=== PATIENT | female | born 1945 | race Caucasian/White ===

== ENCOUNTER 2020-09-25 13:59 | Emergency (ER) | payer MEDICARE, OTHER ==
[~2020-09-25] VITALS: Ht 160 cm; Wt 68.0 kg
[2020-09-25 14:33] LABS: URINE BILIRUBIN NEGATIVE (Negative); URINE BLOOD NEGATIVE (Negative); URINE CLARITY CLEAR; URINE COLOR YELLOW; URINE GLUCOSE-RANDOM NEGATIVE (Negative); URINE KETONES NEGATIVE (Negative); URINE LEUKOCYTES-REFLEX 1+ (Negative); URINE NITRITE-REFLEX NEGATIVE (Negative); URINE PROTEIN NEGATIVE (Negative); URINE UROBILINOGEN 0.2 E.U./dl (0.2-1.0)
[2020-09-25] MEDS ORDERED: TOPROL XL50 MG PO (14:34)
[2020-09-25] MEDS ORDERED: LASIX 40 MG TAB40 MG PO (14:34)
[2020-09-25] MEDS ORDERED: LISINOPRIL10 MG PO (14:34)
[2020-09-25] MEDS ORDERED: LOVASTATIN 20 M20 MG PO (14:35)
[2020-09-25] MEDS ORDERED: NORVASC10 MG PO (14:35)
[2020-09-25 14:39] LABS: BACTERIA-REFLEX 1-9 Few /HPF (None Seen); CASTS None Seen /LPF (None Seen); CRYSTALS None Seen /LPF (None Seen); MUCUS None Seen strn/LPF (None Seen); SQUAMOUS NONE SEEN /LPF (0-3); URINE RBC 0-2 Rare /HPF (0-2); URINE WBC-REFLEX 0-5 Rare /HPF (0-5)
[2020-09-25 14:48] LABS: ABSOLUTE BASOPHILS 0.1 thou/uL (0.0-0.2); ABSOLUTE EOSINOPHILS 0.3 thou/uL (0.0-0.7); ABSOLUTE LYMPHOCYTES 1.7 thou/uL (0.8-5.3); ABSOLUTE MONOCYTES 0.7 thou/uL (0.0-1.2); BASOPHILS 1.2 %; EOSINOPHILS 3.4 %; HEMOGLOBIN 12.6 gm/dL (12.0-15.0); LYMPHOCYTES 19.1 %; MCH 33.2 pg (26.0-34.0); MCHC 34.9 g/dL (28.0-37.0); MONOCYTES 7.6 %; MPV 7.3 fl. (7.2-11.1); NUCLEATED RBCS 0 /100WBC; PLATELET COUNT* 319 thou/uL (150-400); POLYS 68.7 %; RBC 3.79 mil/uL (4.20-5.00); RDW-CV 12.7 % (10.5-14.5); WBC 8.7 thou/uL (4.0-11.0)
[2020-09-25 14:59] LABS: CALCIUM 9.3 mg/dL (8.5-10.1); CREATININE 1.3 mg/dL (0.6-1.3); POTASSIUM 4.6 mmol/L (3.5-5.1)
[2020-09-25 15:09] LABS: ALBUMIN 3.5 g/dL (3.4-5.0); TOTAL BILIRUBIN 0.2 mg/dL (<0.1-1.0); TOTAL PROTEIN 7.4 g/dL (6.4-8.2)
[2020-09-25] MEDS ORDERED: CEPHALEXIN500 MG PO (17:04)
[2020-09-25] MEDS ORDERED: HYDROCODON-ACE1 EAC7 PO (17:04)
[2020-09-25 17:23] VITALS: BP 159/56
--- NOTE | 2020-09-26 09:00 | EKG ---
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 : 1945 Requested By: Jose Juan Hidalgo Order Number: [id number] MD: Mac Carranza Measurements Intervals [place] Rate: 52 P: 79 MD: 148 QRS: -33 QRSD: 139 T: 103 QT: 464 QTc: 432 Interpretive Statements Sinus rhythm Consider left atrial enlargement Left bundle branch block No previous ECG available for comparison Electronically Signed On 09-26-2020 9:00:15 CDT by Mac Carranza [email or web address] <ELECTRONICALLY SIGNED> By: Mac Carranza MD, [facility] 09/26/20 0900 1435 1435 Mac Carranza MD, [facility] /EPI
== END 2020-09-25 17:24 | disposition home or self-care (01) ==
LOC: EDSEX 13:59 → M.ERS 13:59
PROVIDERS: Emergency Medicine Emergency Medical Services
DX: S32.010A Wedge compression fracture of first lumbar vertebra, initial encounter for closed fracture (principal); S32.020A Wedge compression fracture of second lumbar vertebra, initial encounter for closed fracture; N39.0 Urinary tract infection, site not specified; M25.552 Pain in left hip; W18.39XA Other fall on same level, initial encounter; Y93.89 Activity, other specified; Y92.89 Other specified places as the place of occurrence of the external cause; Y99.8 Other external cause status

== ENCOUNTER 2020-10-09 12:46 | Inpatient (IN) | payer MEDICARE ==
[~2020-10-09] VITALS: Ht 165.1 cm; Wt 53.1 kg
[~2020-10-09 12:46] MED LIST: CEPHALEXIN500 MG PO; HYDROCODON-ACE1 EAC7 PO; LASIX 40 MG TAB40 MG PO; LISINOPRIL10 MG PO; LOVASTATIN 20 M20 MG PO; NORVASC10 MG PO; TOPROL XL50 MG PO
[2020-10-09 13:04] VITALS: BP 152/47
[2020-10-09 13:22] LABS: ABSOLUTE BASOPHILS 0.1 thou/uL (0.0-0.2); ABSOLUTE EOSINOPHILS 0.1 thou/uL (0.0-0.7); ABSOLUTE LYMPHOCYTES 1.5 thou/uL (0.8-5.3); ABSOLUTE MONOCYTES 0.4 thou/uL (0.0-1.2); ABSOLUTE NEUTROPHILS 8.3 thou/uL (1.6-8.1); BASOPHILS 0.9 %; EOSINOPHILS 0.9 %; HEMATOCRIT 37.6 % (37.0-47.0); HEMOGLOBIN 13.4 gm/dL (12.0-15.0); LYMPHOCYTES 14.3 %; MCH 33.2 pg (26.0-34.0); MCHC 35.7 g/dL (28.0-37.0); MONOCYTES 4.2 %; MPV 7.2 fl. (7.2-11.1); NUCLEATED RBCS 0 /100WBC; PLATELET COUNT* 372 thou/uL (150-400); POLYS 79.7 %; RBC 4.05 mil/uL (4.20-5.00); RDW-CV 12.4 % (10.5-14.5); WBC 10.4 thou/uL (4.0-11.0)
[2020-10-09 13:28] LABS: CALCIUM 9.7 mg/dL (8.5-10.1); CREATININE 1.1 mg/dL (0.6-1.3); POTASSIUM 4.1 mmol/L (3.5-5.1)
[2020-10-09 13:39] LABS: ALBUMIN 3.8 g/dL (3.4-5.0); TOTAL BILIRUBIN 0.4 mg/dL (<0.1-1.0)
[2020-10-09 14:47] LABS: URINE BILIRUBIN NEGATIVE (Negative); URINE BLOOD NEGATIVE (Negative); URINE CLARITY CLEAR; URINE COLOR YELLOW; URINE GLUCOSE-RANDOM NEGATIVE (Negative); URINE KETONES NEGATIVE (Negative); URINE LEUKOCYTES-REFLEX 1+ (Negative); URINE NITRITE-REFLEX NEGATIVE (Negative); URINE PROTEIN NEGATIVE (Negative); URINE UROBILINOGEN 0.2 E.U./dl (0.2-1.0)
[2020-10-09 15:04] LABS: SQUAMOUS 0-3 Few /LPF (0-3)
[2020-10-09 15:05] LABS: URINE RBC None Seen /HPF (0-2); URINE WBC-REFLEX 0-5 Rare /HPF (0-5)
[2020-10-09 15:06] LABS: BACTERIA-REFLEX 1-9 Few /HPF (None Seen); CASTS None Seen /LPF (None Seen); CRYSTALS None Seen /LPF (None Seen); MUCUS None Seen strn/LPF (None Seen)
--- NOTE | 2020-10-09 15:37 | EKG ---
[place] [address] ELECTROCARDIOGRAM REPORT Name: CRIS HARP Olinda Room: [facility]#: [id number] Admission: 10/09/20 Attend Phys: Discharge: Date of : 45 Date of Service: 10/09/20 1257 Report #: [id number] THIS REPORT FOR: //name// [facility] ED Test Date: 2020-10-09 Test Time: 12:57:36 Pat Name: CRIS HARP Department: Room: Gender: F Media Specialist: : 1945 Requested By: Jose Juan Hidalgo Order Number: [id number] MD: Xu Mcfarlane Measurements Intervals [place] Rate: 61 P: 81 NE: 144 QRS: -33 QRSD: 138 T: 102 QT: 460 QTc: 464 Interpretive Statements Sinus rhythm Left bundle branch block Compared to ECG 09/25/2020 14:35:51 No significant changes Electronically Signed On 10-09-2020 15:36:48 CDT by Xu Mcfarlane [email or web address] <ELECTRONICALLY SIGNED> By: Xu Mcfarlane MD, [facility] 10/09/20 1536 1257 1257 Xu Mcfarlane MD, [facility] /EPI
--- NOTE | 2020-10-09 16:48 | NUR ---
spoke with Dr. García regarding consult for IR for kyphoplasty on vertebrae. Dr. García will ask Dr. Mohamud to evaluate in AM for procedure and date of procedure. If necessary to do sooner than later, one of the physicians will come out here to do hopefully Weds. Will follow up with Dr. Mohamud in AM. Called RN in ER to advise of Plan.
[2020-10-09 17:35] VITALS: BP 143/38
[2020-10-10 03:49] LABS: HEMATOCRIT 32.7 % (37.0-47.0); HEMOGLOBIN 11.5 gm/dL (12.0-15.0); MCH 32.9 pg (26.0-34.0); MCHC 35.2 g/dL (28.0-37.0); MCV 93.2 fL (80.0-100.0); MPV 7.2 fl. (7.2-11.1); RBC 3.5 mil/uL (4.20-5.00); RDW-CV 12.5 % (10.5-14.5); WBC 7.2 thou/uL (4.0-11.0)
[2020-10-10 03:56] LABS: CALCIUM 9.1 mg/dL (8.5-10.1); CREATININE 0.9 mg/dL (0.6-1.3); POTASSIUM 4.1 mmol/L (3.5-5.1)
[2020-10-10 04:00] LABS: MAGNESIUM 1.8 mg/dL (1.8-2.4); TOTAL BILIRUBIN 0.4 mg/dL (<0.1-1.0); TOTAL PROTEIN 6.6 g/dL (6.4-8.2)
--- NOTE | 2020-10-10 05:44 | NUR ---
RECIEVED PT VIA GURDERREK WITH C/O LOWER BACK PAIN SINCE ONE AGO WHEN PT FELL. TODAY PAIN " UNBEARABLE" AND CAME IN D TO BE SEEN. DATA BASE AND ASSESSMENT COMPLETED, DISCUSSED PLAN OF CARE , PT AGREEABLE. BSC AT BESIDE BED ALARM ON FOR SAFETY.
[2020-10-10 08:00] VITALS: BP 143/51
--- NOTE | 2020-10-10 11:47 | NUR ---
IR consulted for possible kyphoplasty of L1. after discussing with Dr. Kalen Bruner, the procedure can be accomplished but only after patient is free from UTI. Dr. Bruner stated that there is the possibility of osteomyelitis with the other process going on. Dr. Dang informed of this and will wait for future orders as how to proceed.
--- NOTE | 2020-10-10 14:24 | NUR ---
Pt is A&O. Resides at home with her and 2 sons. Independent, has to assist sometimes with mobility. Pt has a walker, cane and wc that she can use, primarily uses walker. No hx of HH or SNF. Pt open to HH at ma, if needed. ARU consult placed. Therapies to see. GI following. Plan MRI spine today. Following
--- NOTE | 2020-10-10 15:31 | CON ---
[address] [address] CONSULTATION Name: CRIS HARP Room: [address] IN ..#: [id number] Admission: 10/09/20 Attend Phys: Sue Dang MD Discharge: Date of : 45 Report #: [id number] THIS REPORT FOR: cc: [facility] - Clinic physician unknown [facility] - Clinic physician unknown Mariely Veliz MD ~ DOC #: [id number] ALCON Hernandez DATE OF CONSULTATION: 10/10/2020 No PCP is noted at this time. Please note at the time of this dictation, the patient was seen and physically examined by myself. REASON FOR CONSULTATION: Nausea, vomiting and dysphagia. HISTORY OF PRESENT ILLNESS: This is a 75-year-old female who presented to the Emergency Room with intractable back pain, nausea and vomiting. The patient states that she fell about 3 weeks ago and has had worsening of her pain. About 2 weeks ago, she was in the ER and then discharged home. It was noted that she had a lumbar compression fracture at L1 and L2. She states she has had progressive nausea and vomiting as well as she is having some difficulty with swallowing and she has noticed about a 20-pound weight loss over the last several months. The patient states that with her vomitus, she denies any bright red blood or any coffee-ground emesis. She does take some NSAIDs once or twice a week, depending on her generalized aches and pains. She states she does not have any abdominal pain. Her bowels normally move once a day to every other day. They are soft and formed with no evidence of any bright red blood or any melanotic stool. The patient states she has never been evaluated by a maintenance and engineering manager or ever had an EGD or a colonoscopy. The patient does mention that she will be awakened at night with acid reflux or heartburn as she describes it, and she will have to take Maalox. She states this is usually several times a week that she has noted this. The patient states when she does have some difficulty with swallowing on occasions, it is mainly more with solid foods, not liquids that she has had to have her pound on her back, but she has never actually thrown up from that. ALLERGIES: No known drug allergies. MEDICATIONS: From home include Mevacor, Norvasc, Toprol, Lasix, and Zestril. PAST MEDICAL HISTORY: Hypertension, high cholesterol. PAST SURGICAL HISTORY: [place] [address] CONSULTATION Name: CRIS HARP Room: [address]#: [id number] Admission: 10/09/20 Attend Phys: Sue Dang MD Discharge: Date of : 45 Report #: [id number] FAMILY HISTORY: Negative for any GI or female cancers. SOCIAL HISTORY: Denies any alcohol, tobacco, or illegal drug use. REVIEW OF SYSTEMS: Twelve-point review of systems is essentially negative except what is mentioned in the HPI. PHYSICAL EXAMINATION: VITAL SIGNS: 36.1, pulse 64, respirations 22, blood pressure 143/58. HEART: Regular rate and rhythm. LUNGS: Clear. ABDOMEN: Soft, positive bowel sounds in all 4 quadrants with some slight epigastric tenderness noted to palpation. LABORATORY DATA: Hemoglobin on admission was 13.4, she is 11.5; white count is 7.2; platelets 294. GFR 61. BUN is 13, creatinine 0.9. LFTs are completely normal except alk phos was 171 on admission. It is down to 141. CT scan of the abdomen and pelvis showed cholelithiasis, mild pancreatic ductal dilatation with no evidence for any pancreatic mass, hiatal hernia and mild sigmoid diverticulosis. Also L1-L2 endplate compression deformities noted along with advanced lumbar spondylosis. IMPRESSION: 1. Dysphagia. 2. Epigastric pain. 3. Weight loss of 20 pounds. 4. Gastroesophageal reflux disease, nocturnal. 5. Elevated alkaline phosphatase. 6. Compression fracture from her back pain. PLAN: 1. EGD today with Dr. Veliz. 2. GGTP to evaluate elevated alk phos, likely related to her compression fracture. 3. Further recommendations after the above has been noted. The patient may likely need a colonoscopy since she has never had one before. Thank you for allowing us to participate in this patient's care. Please do not hesitate to call with any questions regarding this consult. Mariely [place] [address] CONSULTATION Name: KATIUSKACRIS S Room: [address] IN [facility]#: [id number] Admission: 10/09/20 Attend Phys: Sue Dang MD Discharge: Date of : 45 Report #: [id number] <ELECTRONICALLY SIGNED> By: Mariely Veliz MD 10/10/20 1531 0744 [id number] Veliz MD /nt
[2020-10-10 17:12] VITALS: BP 129/44
--- NOTE | 2020-10-10 18:29 | NUR ---
PT WITH SALINE LOCK IN HER RIGHT FORARM WITH NORMAL SALINE INFUSING WITH OUT DIFFICULTY. VSS AFEBRILE. PT WILL BE NPO THIS EVENING FOR EGD TOMORROW. PT UP WITH SBA TO THE BSC. PT HAD MRI DONE THIS MID MORNING. TRAMADOL CONTROLLING BACK PAIN. WILL CONTINUE TO MONITOR PLAN OF CARE. PT AND SON WERE HERE THIS AFTERNOON TO SEE PATIENT.
[2020-10-10 20:10] VITALS: BP 136/35
[2020-10-10 22:30] LABS: URINE BILIRUBIN NEGATIVE (Negative); URINE BLOOD NEGATIVE (Negative); URINE CLARITY CLEAR; URINE COLOR STRAW; URINE GLUCOSE-RANDOM NEGATIVE (Negative); URINE KETONES NEGATIVE (Negative); URINE LEUKOCYTES NEGATIVE (Negative); URINE NITRITE NEGATIVE (Negative); URINE PROTEIN NEGATIVE (Negative); URINE UROBILINOGEN 0.2 E.U./dl (0.2-1.0)
[2020-10-11 05:14] LABS: HEMATOCRIT 32.2 % (37.0-47.0); HEMOGLOBIN 11.4 gm/dL (12.0-15.0); MCH 32.9 pg (26.0-34.0); MCHC 35.5 g/dL (28.0-37.0); MCV 92.8 fL (80.0-100.0); MPV 7.2 fl. (7.2-11.1); RBC 3.47 mil/uL (4.20-5.00); RDW-CV 12.5 % (10.5-14.5); WBC 6.5 thou/uL (4.0-11.0)
[2020-10-11 05:27] LABS: ALBUMIN 3.1 g/dL (3.4-5.0); CREATININE 0.7 mg/dL (0.6-1.3); MAGNESIUM 1.7 mg/dL (1.8-2.4); POTASSIUM 3.7 mmol/L (3.5-5.1); TOTAL BILIRUBIN 0.4 mg/dL (<0.1-1.0); TOTAL PROTEIN 6.6 g/dL (6.4-8.2)
--- NOTE | 2020-10-11 06:39 | NUR ---
PT CONFUSED, SOMETIMES USES CALL LIGHT, SHE CANNOT SEE MUCH AT ALL WITHOUT HER GLASSES. SHE IS UP STANDBY TO BEDSIDE COMMODE, URINATING FREQUENTLY, MEDS AND FLUIDS GIVEN SCHEDULED. PAIN WELL MANAGED ON SCHEDULED TRAMADOL. SHE KEEPS FORGETTING SHE IS AT THE HOSPITAL. REORIENTS QUICKLY WHEN ADDRESSED. NPO SINCE MIDNIGHT. WILL CONTINUE TO MONITOR
[2020-10-11 08:00] VITALS: BP 137/74
--- NOTE | 2020-10-11 11:56 | NUR ---
GI work up pending, Pt to have EGD today. Plan vertibroplasty on Friday once UTI is resolved. ARU following.
--- NOTE | 2020-10-11 13:31 | NUR ---
PT TAKEN TO THE GI LAB FOR EDG AT 1230 THIS AFTERNOON PER WHEEL CHAIR. WILL CONTINUE TO MONITOR.
[2020-10-11 15:09] VITALS: BP 140/47
--- NOTE | 2020-10-11 19:22 | NUR ---
PT DOWN FOR EDG AND THEN BACK TO HER ROOM. VSS AFEBRILE. PT HAS IV FLUIDS INFUSING THROUGH HER SALINE LOCK. FAMILY HERE TO SEE HER. POSSIBLE DISCHARGE TOMORROW TO HOME. WILL CONTINUE TO MONITOR PLAN OF CARE.
[2020-10-11 20:00] VITALS: BP 148/51
--- NOTE | 2020-10-12 03:52 | NUR ---
PT CONFUSION ESCALATING MORE AT NIGHT. SHE DOES NOT KNOW WHERE SHE IS AND THINKS SHE IS AT HOME. FORGETS TO USE CALL LIGHT. AFTER INSTRUCTIONS SHE FORGETS WITHIN A MINUTE OR TWO. SHE IS OTHERWISE UP STANDBY TO THE COMMODE. SHE URINATED LESS THIS SHIFT, UP LESS AND SLEPT BETTER TONIGHT. SHE RECEIVED ALL MEDS SCHEDULED. SHE DID NOT REPORT AND PAIN OR NAUSEA. BED ALARM ON, HOURLY ROUNDING. WILL CONTINUE TO MONITOR.
[2020-10-12 08:45] VITALS: BP 125/49
--- NOTE | 2020-10-12 14:43 | NUR ---
PT WILL D/C TO ARU POSSIBLY TOMORROW AFTER VERTEBROPLASTY.
[2020-10-12 16:00] VITALS: BP 141/50
--- NOTE | 2020-10-12 20:29 | NUR ---
PATIENT RESTING IN BED. PATIENT IS UP STANDBY ASSIST. PATIENT HAS HAD COMPLAINTS OF BACK PAIN, TREATED ADEQUATLEY WITH MEDICATION. PATIENT IS FORGETFUL, BED ALARM ON. PATIENT TO BE NPO AFTER MIDNIGHT FOR KYPHOPLASTY IN AM. PATIENT HAS FAIR APPETITE, ENSURE SUPPLEMENT GIVEN. PATIENT DENIES ANY NEEDS AT THIS TIME. CALL LIGHT WITHIN REACH.
[2020-10-12 20:30] VITALS: BP 140/62
--- NOTE | 2020-10-13 07:50 | NUR ---
PATIENT SLEPT MOST OF THE NIGHT. PATIENT HAS BEEN NPO SINCE MIDNIGHT. PATIENT HAD NO COMPLAINTS OF PAIN. PATIENT COULD POSSIBLY DC TODAY. WILL CONTINUE TO MONITOR.
[2020-10-13 08:05] VITALS: BP 143/50
[2020-10-13] MEDS ORDERED: TRAMADOL 50 MG50 MG PO (09:07)
[2020-10-13] MEDS ORDERED: PROTONIX40 M2 PO (09:07)
[2020-10-13] MEDS ORDERED: HYDROCODON-ACE1 EAC7 PO (09:07)
[2020-10-13] MEDS ORDERED: CARAFATE 1 GM TA1 G1 PO (09:07)
[2020-10-13] MEDS ORDERED: LIDOPATCH1 EACH TOP (09:07)
[2020-10-13] MEDS ORDERED: PHENAZOPYRIDIN100 M1 PO (09:07)
[2020-10-13 11:30] VITALS: BP 149/64
[2020-10-13 12:00] VITALS: BP 156/62
[2020-10-13 12:45] VITALS: BP 175/60
--- NOTE | 2020-10-13 14:40 | NUR ---
Pt had vertebraplasty this AM, plan back to ARU today. Per clinical rehabilitation liaison, Dr Banegas requesting that PT/OT see Pt prior to Pt's return, updated and CM Mgr that Pt's dc may not happen today.
[2020-10-13 15:24] VITALS: BP 156/56
--- NOTE | 2020-10-13 17:07 | PATH ---
[address] [address] PATHOLOGY RPT PROCEDURE Name: CRIS VALDOVINOS Room: [address] IN ..#: [id number] Admission: 10/09/20 Date of : 45 Discharge: Report #: [id number] Path Case #: [id number] [facility] Accession Number: [id number] . 01 Material submitted: . PART A: duodenum - DUODENAL BIOPSY FOR H. PYLORI PART B: gastrointestinal site - GASTRIC ULCER BIOPSY . 01 Clinical history: . EGD IN OR LUMBAR COMPRESSION FRACTURE . 02 Diagnosis: A. Duodenal biopsy: - Severe nonspecific active duodenitis with erosion, negative for granulomas, viral inclusions and dysplasia/adenomatous change. See comment. . B. 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 . (GRAHAM:elizabeth; 10/13/2020) R 10/13/2020 1556 Local . 02 Comment: Because H. pylori typically is not found in association with small intestinal mucosa, H. pylori immunohistochemical stain is instead performed on the gastric ulcer (B) and is negative. (GRAHAM:elizabeth; 10/13/2020) . Special stain on B: H. pylori immuno . 02 Electronically signed: . Rashel Hills MD, Pathologist NPI- [id number] . 01 Gross description: . A. Received in formalin labeled "Cris Valdovinos, duodenum" are 2 gonzalez-brown soft tissue fragments measuring in aggregate 0.5 x 0.2 x 0.1 cm. The specimen is submitted entirely in A1. . B. Received in formalin labeled "Cris Valdovinos, gastric ulcer" are multiple gonzalez-brown soft tissue fragments measuring in aggregate 0.6 x 0.5 x 0.1 cm. The specimen is submitted entirely in B1. (ODALIS; 10/12/2020) ODALIS/ODALIS 10/12/[address] [place] [address] [place] [address] PATHOLOGY RPT PROCEDURE Name: CRIS VALDOVINOS Room: [address] IN .R.#: [id number] Admission: 10/09/20 Date of : 45 Discharge: Report #: [id number] Path Case #: [id number] Pathologist provided ICD-10: K29.80, K26.9, K29.50 . 02 CPT . 391812, 751611, [id number] Specimen Comment: A courtesy copy of this report has been sent to [phone], [phone] Specimen Comment: [id number] Specimen Comment: Report sent to / DR NEAL Performed at: [address], [place], [place] [id number] MD Sammy Taveras MD Phone: [phone] Performed at: [facility] [address], [place], [place] [id number] MD Rashel Hills MD Phone: [phone]
--- NOTE | 2020-10-13 18:56 | NUR ---
PATIENT RESTING IN BED. PATIENT IS UP STANDBY ASSIST. PATIENT HAD KYPHOPLASTY TODAY WITHOUT INCIDENT. PATIENT HAS CONTINUED COMPLAINTS OF COCCYX PAIN BUT STATES BACK FEELS BETTER. PATIENT IS FORGETFUL AND BED ALARM IS ON. PATIENT HAS FAIR APPETITE. PATIENT DENIES ANY NEEDS AT THIS TIME. CALL LIGHT WITHIN REACH.
[2020-10-13 21:06] VITALS: BP 133/58
[2020-10-14 00:40] VITALS: BP 147/58
[2020-10-14 03:16] VITALS: BP 147/47
--- NOTE | 2020-10-14 06:37 | NUR ---
PT AO, PLEASANT AND SOMEWHAT FORGETFUL OVERNIGHT. UP WITH SBA TO BSC TO VOID OVERNIGHT. RWRIST SL IV. NO LABS THIS MORNING. ROOM AIR. DRSG TO KYPHOPLASTY SITE CDI. PT TURNS SELF IN BED WITHOUT DIFFICULTY. SCHEDULED TRAMADOL GIVEN FOR BACK AND COCCYX PAIN WITH GOOD CONTROL. PYRIDIUM GIVEN SCHEDULED FOR URINARY DISCOMFORT R/T UTI. PT HOPEFUL FOR DISCHARGE HOME WITH FAMILY SOON. CALL LITE IN EASY REACH, BED ALARM ON FOR SAFETY.
[2020-10-14 08:03] VITALS: BP 141/58
[2020-10-14 11:57] VITALS: BP 140/43
[2020-10-14 15:43] VITALS: BP 140/50
--- NOTE | 2020-10-14 17:45 | NUR ---
PT WORKED WITH THERAPY. UP WITH ASSIST X1. REPORTS BACK PAIN. PRN AND SCHEDULED PAIN MEDICATION GIVEN. DRESSING TO OP SITE ON BACK C/D/I. FAMILY HERE TO VISIT.
[2020-10-14 19:50] VITALS: BP 108/69
--- NOTE | 2020-10-15 05:06 | NUR ---
PATIENT HAS REMAINED ALERT AND ORIENTED X 4 WITH FORGETFULNESS THROUGHOUT THE SHIFT AND RESTING QUIETLY ON HOURLY ROUNDS. SAT IN CHAIR UNTIL HS. TRANSFERING WITH GAIT BELT AND WALKER,CGA. SCHEDULED PAIN MEDICATION HAS BEEN EFFECTIVE FOR PAIN MANAGEMENT. PATIENT TURNING SELF IN BED. DID TRIGGER CHAIR ALARM IN THE EVENING BUT ALSO USED NURSE CALL CHAVEZ. FALL PRECAUTIONS IN PLACE. VITAL SIGNS STABLE. CONTINUE TO MONITOR.
[2020-10-15 07:30] VITALS: BP 129/55
[2020-10-15 15:49] VITALS: BP 148/48
--- NOTE | 2020-10-15 16:27 | NUR ---
PT REMAINED ALERT AND ORIENTED X3. PT UP FOR MEALS. FAMILY AT BEDSIDE. FALL RISK PRECAUTIONS IN PLACE. HOURLY ROUNDING COMPLETED. CALL LIGHT WITHIN REACH.
[2020-10-15 21:20] VITALS: BP 141/55
--- NOTE | 2020-10-16 05:36 | NUR ---
PATIENT HAS REMAINED ALERT AND ORIENTED X 2-3 BUT QUITE FORGETFUL. NOT USING CALL LIGHT THIS SHIFT. FALL PRECAUTIONS IN PLACE. UP TO BR OR BSC WITH CGA, WALKER AND GAIT BELT. NEEDS CUEING WITH ALL TRANSFERS FOR SAFETY AND TECHNIQUE. RATES PAIN 5/10 PRIOR TO SCHEDULED PAIN MEDICATION TO GOOD EFFECT. CONTINUE TO MONITOR.
[2020-10-16 07:20] VITALS: BP 192/76
--- NOTE | 2020-10-16 13:53 | NUR ---
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 UTI. H/o HTN, HLD, cholelithiasis. Seen for LOS. Pt has been eating well. She said she wasn't too hungry this lunch, but has been eating well other than that. I helped her fill out her menu for tomorrow's meals. Wt is at usual, 115-120#. Alb 3.1, Na 134. Regular diet ordered. No nutrition concerns. Low risk.
[2020-10-16 17:07] VITALS: BP 140/58
--- NOTE | 2020-10-16 17:09 | NUR ---
PT REMAINED ALERT AND ORIENTED X3. PT UP FOR MEALS. CALL LIGHT WITHIN REACH. FALL RISK PRECAUTIONS IN PLACE. HOURLY ROUNDING COMPLETED.
--- NOTE | 2020-10-16 18:44 | NUR ---
REPORT CALLED TO REHAB. PT TRANSFERRED TO REHAB. FAMILY NOTIFIED. FALL RISK PRECAUTIONS IN PLACE. HOURLY ROUNDING COMPLETED.
== END 2020-10-16 18:45 | DRG 516 ==
LOC: M.ERS 12:46 → M.ORTHSURG 15:43 → M.TBA-ER 15:43 → M.ORTHSURG 20:30
PROVIDERS: Emergency Medicine Emergency Medical Services; ADMIT Internal Medicine; ATTEND Internal Medicine
PROC: 0DB98ZX Excision of Duodenum, Via Natural or Artificial Opening Endoscopic, Diagnostic (ICD-10-PCS; principal; 2020-10-11)
PROC: 0DB68ZX Excision of Stomach, Via Natural or Artificial Opening Endoscopic, Diagnostic (ICD-10-PCS; principal; 2020-10-11)
PROC: 0D758ZZ Dilation of Esophagus, Via Natural or Artificial Opening Endoscopic (ICD-10-PCS; principal; 2020-10-11)
PROC: 0QU03JZ Supplement Lumbar Vertebra with Synthetic Substitute, Percutaneous Approach (ICD-10-PCS; 2020-10-13)
PROC: 0QS03ZZ Reposition Lumbar Vertebra, Percutaneous Approach (ICD-10-PCS; 2020-10-13)
DX: S32.019A Unspecified fracture of first lumbar vertebra, initial encounter for closed fracture (principal); E87.1 Hypo-osmolality and hyponatremia; E44.1 Mild protein-calorie malnutrition; N39.0 Urinary tract infection, site not specified; Z68.1 Body mass index [BMI] 19.9 or less, adult; K26.9 Duodenal ulcer, unspecified as acute or chronic, without hemorrhage or perforation; K25.9 Gastric ulcer, unspecified as acute or chronic, without hemorrhage or perforation; I10 Essential (primary) hypertension; E78.00 Pure hypercholesterolemia, unspecified; E78.5 Hyperlipidemia, unspecified; E86.0 Dehydration; B96.89 Other specified bacterial agents as the cause of diseases classified elsewhere; K80.20 Calculus of gallbladder without cholecystitis without obstruction; R63.4 Abnormal weight loss; K21.9 Gastro-esophageal reflux disease without esophagitis; M19.90 Unspecified osteoarthritis, unspecified site; M48.061 Spinal stenosis, lumbar region without neurogenic claudication; K44.9 Diaphragmatic hernia without obstruction or gangrene; W18.39XA Other fall on same level, initial encounter; Z96.642 Presence of left artificial hip joint; Z20.822 Contact with and (suspected) exposure to COVID-19; Z79.899 Other long term (current) drug therapy; Y93.89 Activity, other specified; Y92.89 Other specified places as the place of occurrence of the external cause; Y99.8 Other external cause status

== ENCOUNTER 2020-10-16 17:13 | Inpatient (IN) | payer MEDICARE ==
[~2020-10-16] VITALS: Ht 160 cm; Wt 55.5 kg
[~2020-10-16 17:13] MED LIST changes: +CARAFATE 1 GM TA1 G1 PO; +LIDOPATCH1 EACH TOP; +PHENAZOPYRIDIN100 M1 PO; +PROTONIX40 M2 PO; +TRAMADOL 50 MG50 MG PO
[2020-10-16 19:00] VITALS: BP 143/33
[2020-10-17 05:01] LABS: HEMATOCRIT 33.3 % (37.0-47.0); HEMOGLOBIN 11.8 gm/dL (12.0-15.0); MCHC 35.3 g/dL (28.0-37.0); MCV 93.5 fL (80.0-100.0); MPV 6.9 fl. (7.2-11.1); RBC 3.56 mil/uL (4.20-5.00); RDW-CV 12.7 % (10.5-14.5)
[2020-10-17 05:07] LABS: CALCIUM 8.9 mg/dL (8.5-10.1); CREATININE 0.9 mg/dL (0.6-1.3); POTASSIUM 4.2 mmol/L (3.5-5.1)
[2020-10-17 07:43] VITALS: BP 120/53
[2020-10-17 19:00] VITALS: BP 133/45
[2020-10-18 04:48] LABS: HEMATOCRIT 31.1 % (37.0-47.0); HEMOGLOBIN 11.2 gm/dL (12.0-15.0); MCH 33.3 pg (26.0-34.0); MCHC 35.9 g/dL (28.0-37.0); MCV 92.6 fL (80.0-100.0); MPV 7.2 fl. (7.2-11.1); RBC 3.36 mil/uL (4.20-5.00); RDW-CV 12.5 % (10.5-14.5); WBC 6.9 thou/uL (4.0-11.0)
[2020-10-18 05:03] LABS: CALCIUM 8.7 mg/dL (8.5-10.1); CREATININE 0.9 mg/dL (0.6-1.3); POTASSIUM 3.8 mmol/L (3.5-5.1)
[2020-10-18 07:36] VITALS: BP 132/44
[2020-10-18 19:00] VITALS: BP 130/40
[2020-10-19 08:00] VITALS: BP 148/59
[2020-10-19 20:08] VITALS: BP 142/46
[2020-10-20 08:00] VITALS: BP 149/52
[2020-10-20 09:01] VITALS: BP 149/52
== END 2020-10-20 16:25 | disposition home health service (06) | DRG 948 ==
LOC: M.REH 17:13
PROVIDERS: ADMIT Physical Medicine & Rehabilitation; ATTEND Physical Medicine & Rehabilitation
DX: R53.81 Other malaise (principal); Z96.642 Presence of left artificial hip joint; I10 Essential (primary) hypertension; E78.00 Pure hypercholesterolemia, unspecified; E78.5 Hyperlipidemia, unspecified; M19.90 Unspecified osteoarthritis, unspecified site; M47.816 Spondylosis without myelopathy or radiculopathy, lumbar region; M48.061 Spinal stenosis, lumbar region without neurogenic claudication; R29.6 Repeated falls; K80.20 Calculus of gallbladder without cholecystitis without obstruction; R13.10 Dysphagia, unspecified; Z91.81 History of falling